=== PATIENT | male | born 1960 | race Caucasian/White ===

== ENCOUNTER 2023-07-27 10:29 | Day surgery (SDC) | payer BC, OTHER ==
[~2023-07-27 10:29] MED LIST: Midazolam 1 MG/ML 2 ML SDV ONE; Propofol 200 MG/20 ML SDV ONE
[2023-07-27] MEDS ORDERED: Sodium Chloride 0.9% 10 ML Syringe FLUSH PRN (10:30)
[2023-07-27] MEDS: Lactated Ringers 1,000 ML IV SCH (11:29)
== END 2023-07-27 14:10 | disposition home or self-care (01) ==
LOC: LL.SDS 10:29
PROVIDERS: ATTEND Surgery
DX: Z12.11 Encounter for screening for malignant neoplasm of colon (principal); D12.0 Benign neoplasm of cecum; K57.30 Diverticulosis of large intestine without perforation or abscess without bleeding; E78.2 Mixed hyperlipidemia; Z86.010 Personal history of colon polyps; Z79.899 Other long term (current) drug therapy
CPT/HCPCS: 00811; J2250; J2704; J7120

== ENCOUNTER 2024-08-15 11:51 | Day surgery (SDC) | payer BC ==
[~2024-08-15 11:51] MED LIST changes: +Sodium Chloride 0.9% 10 ML Syringe FLUSH PRN
[2024-08-15] MEDS: Lactated Ringers 1,000 ML IV SCH (12:52)
== END 2024-08-15 14:42 | disposition home or self-care (01) ==
LOC: LL.SDS 11:51
PROVIDERS: ATTEND Surgery
DX: Z12.11 Encounter for screening for malignant neoplasm of colon (principal); D12.0 Benign neoplasm of cecum; Z86.0101 Personal history of adenomatous and serrated colon polyps
CPT/HCPCS: 00811; J2250; J2704; J7120